=== PATIENT | male | born 1945 | race Caucasian/White ===

== ENCOUNTER 2022-04-28 11:21 | Emergency (ER) | payer MEDICARE, BC, SELFPAY ==
[2022-04-28 11:27] VITALS: BP 153/87; PULSE 67; RESP 18; TEMP 36.6; O2SAT 100; BMI 30.2
--- NOTE | 2022-04-28 11:49 | CRLHL7_ITS ---
For Patients: As a result of the Cures Act, medical imaging exams and procedure reports are released immediately into your electronic medical record. You may view this report before your referring provider. If you have questions, please contact your health care provider. Indication: Trauma. Technique: Left foot, 3 views. Comparison: None. Findings: Bones: Alignment is normal. No fractures or bone lesions. Joint spaces: Mild degenerative changes.. Soft tissues: Mild vascular calcifications.. Impression: No sign of acute injury. Dictated by Sumi Paiz MD @ 04/28/2022 12:49:45 PM (Electronically Signed)
--- NOTE | 2022-04-28 11:50 | ED.GENADULT ---
HPI - General Adult General Time Seen by Provider: 11:50 Date Seen: 04/28/22 Chief complaint: Extremity Pain/Injury, Lower Stated complaint: Left Foot injury Time Seen by Provider: 04/28/22 11:25 Source: patient Mode of arrival: ambulatory Limitations: physical limitation History of Present Illness HPI narrative: Patient is a 76 year white male who dropped a steel 40 lb weight that he was using on the back of his tractor to balance his tractor on his left foot this happened a week and half ago. He has had pain with heavy exertion, when he rested for a couple days it feels better. He has got pain over the distal metatarsal of the great toe on the left and up to his base of his left great toe. No subungual hematoma noted, he has denying other injuries. Related Data Home Medications Medication Instructions Recorded Confirmed amlodipine 10 mg tablet mg 04/28/22 atorvastatin 40 mg tablet mg 04/28/22 hydrochlorothiazide 25 mg tablet mg 04/28/22 metoprolol tartrate 50 mg tablet mg 04/28/22 prasugrel 10 mg tablet mg 04/28/22 ramipril 10 mg capsule mg 04/28/22 Allergies Allergy/AdvReac Type Severity Reaction Status Date / Time No Known Drug Allergies Allergy Verified 04/28/22 11:30 Review of Systems Narrative: No history of healing difficulty, nondiabetic bed ache does have a history of hypertension PFSH PFSH Social History Smoking Status: Unknown if ever smoked Do you use any of these nicotine containing products: None How often do you have a drink containing alcohol: never How often do you have six or more drinks on one occasion: Never AUDIT-C Alcohol total score: 0 Non-prescribed substance use: denies use Exam Narrative: Exam Narrative: Objective: Patient's blood pressure slightly elevated His left great toe shows some redness over the distal dorsal metatarsal no open wounds noted Range of motion of the toes great toes normal There is some mild redness at the base of the toe and some mild tenderness to palpation. Const: Vital Signs, click to edit/add: Vital Signs - 24 hr 04/28/22 11:27 Temperature 97.9 F Pulse Rate [Right Pulse Oximeter] 67 Respiratory Rate 18 Blood Pressure [Ri ght Upper Arm] 153/87 H Pulse Oximetry 100 Oxygen Delivery Me thod Room Air Course Vital Signs Vital signs: Initial Vital Signs Temperature 97.9 F 04/28/22 11:27 Temperature Source Temporal Artery Scan 04/28/22 11:27 Pulse Rate 67 04/28/22 11:27 Respiratory Rate 18 04/28/22 11:27 Blood Pressure 153/87 H 04/28/22 11:27 Blood Pressure Mean 109 04/28/22 11:27 Blood Pressure Position Sitting 04/28/22 11:27 Pulse Oximetry 100 04/28/22 11:27 Oxygen Delivery Method 04/28/22 11:27 Vital Signs Temperature 97.9 F 04/28/22 11:27 Pulse Rate 67 04/28/22 11:27 Respiratory Rate 18 04/28/22 11:27 Blood Pressure 153/87 H 04/28/22 11:27 Pulse Oximetry 100 04/28/22 11:27 Oxygen Delivery Method 04/28/22 11:27 Temperature 97.9 F 04/28/22 11:27 Pulse Rate 67 04/28/22 11:27 Respiratory Rate 18 04/28/22 11:27 Blood Pressure 153/87 H 04/28/22 11:27 Pulse Oximetry 100 04/28/22 11:27 Oxygen Delivery Method 04/28/22 11:27 Medical Decision Making MDM Narrative Medical decision making narrative: Patient is a 72 for a male dropped a weight on his left great toe forefoot about a week and a half ago. Has continued to have pain and redness and swelling. Rule out fracture, rule out bony injury or dislocation. Patient will get an x-ray of the left foot. Disposition pending findings. Addendum: The patient's x-ray shows degenerative change, no significant fracture. Await Radiology overreading. At this point I think I offered him a cam walker, crutches, firm still soled shoe. He would like to elected just to his tennis shoes which are firm stay off it elevate it icing Tylenol. The patient does have history of coronary disease has a pacemaker. So he is not to take any anti-inflammatory which makes sense. Will see her radiology says about his x-ray as well. Recheck with regular doctor in 4-5 days if not improving. Discharge Plan Discharge Clinical Impression: Foot injury Patient Disposition: Home, Self-Care Condition: Stable Additional Instructions: Elevate foot, icing as needed, keep off it for few days as best possible. Return to primary care if not improving in next few days. Activity Level: Light activity Discharge Diet: Regular Prescriptions: No Action atorvastatin 40 mg tablet Label Comments: Take 2 tablets (80 mg) by mouth daily. amlodipine 10 mg tablet Label Comments: Take 1 tablet (10 mg) by mouth daily metoprolol tartrate 50 mg tablet Label Comments: Take 1 tablet (50 mg) by mouth 2 times daily. hydrochlorothiazide 25 mg tablet Label Comments: Take 2 tablets (50 mg) by mouth daily. ramipril 10 mg capsule Label Comments: Take 1 capsule (10 mg) by mouth 2 times daily. prasugrel 10 mg tablet Label Comments: Take 1 tablet (10 mg) by mouth daily. Follow Up/Referrals: David Rothman MD [Primary Care Provider] - Stand Alone Forms: [employer] Info Instructions
== END 2022-04-28 12:22 | disposition home or self-care (01) ==
PROVIDERS: Emergency Provider Family Medicine; PCP Family Medicine
DX: S99.922A Unspecified injury of left foot, initial encounter (principal); W20.8XXA Other cause of strike by thrown, projected or falling object, initial encounter
CPT/HCPCS: 29505; 73630; 99283

== ENCOUNTER 2023-02-16 12:22 | Outpatient (CLI) | payer MEDICARE, BC, SELFPAY ==
--- NOTE | 2023-02-16 14:33 | W.ANESCHARGE ---
Anesthesia Charges Start Date/Time Anesthesia Start Date: 02/16/23 Anesthesia Start Time: 14:35 Stop Date/Time Anesthesia Stop Date: 02/16/23 Anesthesia Stop Time: 15:05 Summary Extremes of Age - Over 70 or under 1: MDA
--- NOTE | 2023-02-16 15:08 | W.ANESCHARGE ---
Anesthesia Charges Start Date/Time Anesthesia Start Date: 02/16/23 Anesthesia Start Time: 14:35 Stop Date/Time Anesthesia Stop Date: 02/16/23 Anesthesia Stop Time: 15:05
== END 2023-02-16 12:23 | disposition home or self-care (01) ==
LOC: OP CLINIC 12:23
PROVIDERS: PCP Family Medicine; Visit Provider Internal Medicine Gastroenterology
DX: K63.5 Polyp of colon (principal); Z86.010 Personal history of colon polyps
CPT/HCPCS: 00811; 45380; 88305; 99100; J2704

== ENCOUNTER 2023-04-16 13:58 | Emergency (ER) | payer MEDICARE, BC, SELFPAY ==
[2023-04-16] VITALS (8 sets, daily range): BP systolic 111–133; BP diastolic 57–70; PULSE 55–76; RESP 16; TEMP 36.4; O2SAT 95–98; BMI 29.5
--- NOTE | 2023-04-16 14:36 | CRLHL7_ITS ---
For Patients: As a result of the Century Cures Act, medical imaging exams and procedure reports are released immediately into your electronic medical record. You may view this report before your referring provider. If you have questions, please contact your health care provider. Indication: Pain at base of great toe Technique: Three views Comparison: Left foot 04/28/2022 Findings/Impression: Bones: Ossific density at the dorsal aspect of the interphalangeal joint of the great toe, similar to the prior exam. No clear acute fracture. Joint spaces: No dislocation. Minimal irregularity of the cortex of the proximal phalanx at the interphalangeal joint of the great toe which can be secondary to prior trauma or an erosive process such as gout. Soft tissues: Mild soft tissue swelling great toe. Dictated by Anthony Davison MD @ 04/16/2023 3:25:58 PM (Electronically Signed)
[2023-04-16 15:06] LABS: Creatinine, Point-of-Care* 1.4 mg/dl (0.6-1.3)
[2023-04-16] MEDS: KETOROLAC 15 MG/ML inj IVP (15:18)
--- NOTE | 2023-04-16 15:23 | ED_ITS ---
HPI - General Adult General Date Seen: 04/16/23 Chief complaint: Extremity Pain/Injury, Lower Stated complaint: L Foot pain Time Seen by Provider: 04/16/23 14:00 Source: patient Mode of arrival: ambulatory Limitations: no limitations History of Present Illness HPI narrative: Patient is a 77-year-old male presenting to emergency department for left great toe pain. Symptoms started over the past few days and he says it is painful to walk. Denies fevers, chills, weakness, numbness. No other concerning symptoms. Says all pain is at the base of his left great toe. He is concerned it could be gout. He has no pain anywhere else. Has not had gout before. Does not smoke. Does not eat much red meat. States he does not drink any alcohol. Has never had symptoms like this before Related Data Home Medications Medication Instructions Recorded Confirmed amlodipine 10 mg tablet 10 mg PO DAILY 04/28/22 04/16/23 atorvastatin 40 mg tablet 40 mg PO QHS 04/28/22 04/16/23 hydrochlorothiazide 25 mg tablet 25 mg PO DAILY 04/28/22 04/16/23 metoprolol tartrate 50 mg tablet 50 mg PO BID 04/28/22 04/16/23 prasugrel 10 mg tablet 10 mg PO DAILY 04/28/22 04/16/23 ramipril 10 mg capsule 10 mg PO BID 04/28/22 04/16/23 Previous Rx's Medication Instructions Recorded colchicine 0.6 mg tablet See Rx Instructions .Route 04/16/23 .COMPLEX #4 tabs prednisone 20 mg tablet See Rx Instructions .Route 04/16/23 .COMPLEX #21 tabs Allergies Allergy/AdvReac Type Severity Reaction Status Date / Time No Known Drug Allergies Allergy Verified 04/16/23 14:04 Review of Systems Status of ROS: Reports: 6 or more systems reviewed and unremarkable except as noted in History and below [facility] Social History Smoking Status: Never smoker Do you use any of these nicotine containing products: None How often do you have a drink containing alcohol: never How often do you have six or more drinks on one occasion: Never AUDIT-C Alcohol total score: 0 Non-prescribed substance use: denies use service: No Exam Narrative: Exam Narrative: Const: Well-nourished, Well-developed, in mild distress Eyes: PERRL, no conjunctival injection, and symmetrical lids HENT: Atraumatic external nose and ears. Moist mucous membranes. MSK:Extremities w/o deformity, tenderness noted at base of left great toe Skin: Warm, Dry. No rashes or lesions. Neuro: Normal Muscle tone, No focal neurological deficits. Psych: Awake, Alert, & Oriented x3. Appropriate mood and affect. Const: Vital Signs, click to edit/add: Vital Signs - 24 hr 04/16/23 14:06 04/16/23 14:15 04/16/23 14:16 Temperature 97.5 F L Pulse Rate 56 L 55 L Pulse Rate [Pulse Oximeter] 64 Respiratory Rate 16 Blood Pressure 111/57 L Blood Pressure [Ri ght Upper Arm] 120/63 Pulse Oximetry 97 95 97 Oxygen Delivery Me thod Room Air 04/16/23 14:30 04/16/23 14:54 04/16/23 15:00 Temperature Pulse Rate 55 L 76 55 L Pulse Rate [Pulse Oximeter] Respiratory Rate Blood Pressure Blood Pressure [Ri ght Upper Arm] Pulse Oximetry 97 97 98 Oxygen Delivery Me thod 04/16/23 15:02 04/16/23 15:15 Temperature Pulse Rate 55 L 55 L Pulse Rate [Pulse Oximeter] Respiratory Rate Blood Pressure 133/70 Blood Pressure [Ri ght Upper Arm] Pulse Oximetry 95 98 Oxygen Delivery Me thod Course Vital Signs Vital signs: Initial Vital Signs Temperature 97.5 F L 04/16/23 14:06 Temperature Source Temporal Artery Scan 04/16/23 14:06 Pulse Rate 64 04/16/23 14:06 Pulse Rhythm Regular 04/16/23 14:06 Pulse Strength 3+ Normal 04/16/23 14:06 Respiratory Rate 16 04/16/23 14:06 Blood Pressure 120/63 04/16/23 14:06 Blood Pressure Mean 82 04/16/23 14:06 Blood Pressure Position Sitting 04/16/23 14:06 Pulse Oximetry 97 04/16/23 14:06 Oxygen Delivery Method Room Air 04/16/23 14:06 Vital Signs Temperature 97.5 F L 04/16/23 14:06 Pulse Rate 64 04/16/23 14:06 Respiratory Rate 16 04/16/23 14:06 Blood Pressure 120/63 04/16/23 14:06 Pulse Oximetry 97 04/16/23 14:06 Oxygen Delivery Method Room Air 04/16/23 14:06 Temperature 97.5 F L 04/16/23 14:06 Pulse Rate 55 L 04/16/23 15:15 Respiratory Rate 16 04/16/23 14:06 Blood Pressure 133/70 04/16/23 15:02 Pulse Oximetry 98 04/16/23 15:15 Oxygen Delivery Method Room Air 04/16/23 14:06 Medications Administered Medications: Discontinued Medications Generic Name Dose Route Start Last Admin Trade Name Mamie PRN Reason Stop Dose Admin Ketorolac Tromethamine 15 mg 04/16/23 15:10 04/16/23 15:18 Ketorolac 15 Mg/Ml Inj IVP 04/16/23 15:11 15 mg ONCE ONE Administration Medical Decision Making MDM Narrative Medical decision making narrative: Patient is a 77-year-old male presenting for left great toe pain. Home initial appearance there is some swelling to the area but no overlying erythema. Considering the rather acute onset he describes it seems gout could be possible. Does not appear to be a septic joint at this time. He is having no systemic findings. He otherwise is doing well at this time. X-ray of the toe shows co ncerns for erosive process such as gout which further makes me believe this is gout. I spoke to her about definitive diagnosis and he does not want the joint aspiration at this time. He was given Toradol for the pain. He is not supposed to be on NSAIDs hers guest relations coordinator long-term so at home speak to the guest relations coordinator to see therapy okay with him starting him. In the meantime he was given colchi cine and steroids. He was informed to talk to his primary care provider about the hydrochlorothiazide. Lab Data Labs: Lab Results 04/16/23 Range/Units 15:00 POC Creatinine 1.4 H (0.6-1.3) mg/dl Imaging Data Left Great Toe x-ray: Radiologist's impression: Bones: Ossific density at the dorsal aspect of the interphalangeal joint of the great toe, similar to the prior exam. No clear acute fracture. Joint spaces: No dislocation. Minimal irregularity of the cortex of the proximal phalanx at the interphalangeal joint of the great toe which can be secondary to prior trauma or an erosive process such as gout. Soft tissues: Mild soft tissue swelling great toe. Discharge Plan Discharge Clinical Impression: Gout Qualifiers: Gout site: toe Gout etiology: unspecified cause Chronicity: acute Laterality: right Qualified Code(s): M10.9 - Gout, unspecified Patient Disposition: Home, Self-Care Condition: Stable Instructions: Gout (ED) Additional Instructions: Take the colchicine as directed. If that is not helping with his symptoms try the steroids. Follow-up with your primary care provider for your symptoms. Return to emergency department for new or worsening symptoms Of speak to primary care provider about stopping or changing hydrochlorothiazide as it can cause gout. Also speak to your guest relations coordinator to see if he can take NSAIDs for the gout as it is the first-line treatment. If everything else fails you can speak to Orthopedics for your primary care provider about an injection of steroids into the joint. Activity Level: No Restrictions Discharge Diet: Regular Prescriptions: New prednisone 20 mg tablet See Rx Instructions .ROUTE .COMPLEX Qty: 21 0RF Rx Instructions: Take 50 mg for 2 days (04/16/23-04/17/23) Then Take 40 mg for 2 days (04/18/23-04/19/23) Then Take 30 mg for 2 days (04/20/23-04/21/23) Then Take 20 mg for 2 days (04/22/23-04/23/23) Then Take 10 mg for 2 days (04/24/23-04/25/23) This is a 10 day total prescription. colchicine 0.6 mg tablet See Rx Instructions .ROUTE .COMPLEX Qty: 4 3RF Rx Instructions: Take 1.2 mf (2 pills) initially. Then can take 1 pill (0.6 mg) every hour for the next 2 hours as needed. No Action atorvastatin 40 mg tablet 40 mg PO QHS Patient Comments: Take 2 tablets (80 mg) by mouth daily. amlodipine 10 mg tablet 10 mg PO DAILY Patient Comments: Take 1 tablet (10 mg) by mouth daily metoprolol tartrate 50 mg tablet 50 mg PO BID Patient Comments: Take 1 tablet (50 mg) by mouth 2 times daily. hydrochlorothiazide 25 mg tablet 25 mg PO DAILY Patient Comments: Take 2 tablets (50 mg) by mouth daily. ramipril 10 mg capsule 10 mg PO BID Patient Comments: Take 1 capsule (10 mg) by mouth 2 times daily. prasugrel 10 mg tablet 10 mg PO DAILY Patient Comments: Take 1 tablet (10 mg) by mouth daily. Follow Up/Referrals: David Rothman MD [Primary Care Provider] - Stand Alone Forms: [employer] Info Instructions
== END 2023-04-16 16:07 | disposition home or self-care (01) ==
PROVIDERS: Emergency Provider Student in an Organized Health Care Education/Training Program; PCP Family Medicine
DX: M10.9 Gout, unspecified (principal)
CPT/HCPCS: 73660; 82565; 96374; 99282; 99283; J1885